=== PATIENT | female | born 1955 | race Native Hawaiian/Other Pacific Islander ===

== ENCOUNTER 2019-05-05 10:24 | Outpatient (CLI) | payer OTHER | END 2019-05-05 19:53 | disposition home or self-care (01) | LOC: RAD 10:24 | DX: R07.81 Pleurodynia (principal) ==

== ENCOUNTER 2019-08-06 10:25 | Emergency (ER) | payer OTHER, MEDICARE ==
[~2019-08-06] VITALS: Ht 170.2 cm; Wt 79.8 kg
[2019-08-06 10:37] VITALS: TEMP 98.7
[2019-08-06 11:04] LABS: PLATELET COUNT 155 K/uL (152-353)
[2019-08-06 11:13] LABS: POTASSIUM 3.3 mmol/L (3.6-5.2); SODIUM 138 mmol/L (136-145)
[2019-08-06 12:46] VITALS: BP 137/73
== END 2019-08-06 12:49 | disposition home or self-care (01) ==
LOC: ED 10:25
PROVIDERS: Emergency Medicine
DX: J20.9 Acute bronchitis, unspecified (principal)
CPT/HCPCS: 80053; 81000; 82550; 84484; 85027; 93005; 94664; 96365; 96366; 96374; 96375; 99284; J0696; J2930

== ENCOUNTER 2019-12-12 07:41 | Outpatient (CLI) | payer OTHER, MEDICARE ==
[2019-12-12 08:16] LABS: PLATELET COUNT 238 K/uL (152-353)
== END 2019-12-12 19:33 | disposition home or self-care (01) ==
LOC: LABW 07:41
PROVIDERS: Internal Medicine
DX: E78.49 Other hyperlipidemia (principal); I10 Essential (primary) hypertension; D64.89 Other specified anemias; F41.8 Other specified anxiety disorders; R82.998 Other abnormal findings in urine; D64.9 Anemia, unspecified
CPT/HCPCS: 36415; 80053; 80061; 81000; 82607; 83540; 84439; 84443; 85027; 87086; 87088

== ENCOUNTER 2020-02-10 11:52 | Outpatient (CLI) | payer OTHER, MEDICARE ==
[2020-02-10 12:37] LABS: PLATELET COUNT 237 K/uL (152-353)
[2020-02-10 13:08] LABS: POTASSIUM 4.1 mmol/L (3.6-5.2)
== END 2020-02-10 23:02 | disposition home or self-care (01) ==
LOC: LAB 11:52
PROVIDERS: Internal Medicine
DX: I10 Essential (primary) hypertension (principal); E78.49 Other hyperlipidemia; D64.9 Anemia, unspecified; E55.9 Vitamin D deficiency, unspecified; F41.8 Other specified anxiety disorders; R82.998 Other abnormal findings in urine
CPT/HCPCS: 80053; 80061; 81000; 82306; 82607; 83540; 84439; 84443; 85027; 87086; 87088

== ENCOUNTER 2020-05-16 13:13 | Outpatient (CLI) | payer OTHER, MEDICARE | END 2020-05-16 19:09 | disposition home or self-care (01) | LOC: LAB 13:13 | PROVIDERS: Internal Medicine | DX: E78.49 Other hyperlipidemia (principal); Z79.899 Other long term (current) drug therapy; D64.89 Other specified anemias; E53.8 Deficiency of other specified B group vitamins | CPT/HCPCS: 80061; 80076; 82607 ==

== ENCOUNTER 2021-03-11 10:19 | Outpatient (CLI) | payer OTHER, MEDICARE | END 2021-03-11 21:00 | disposition home or self-care (01) | LOC: MAMMO 10:19 | PROVIDERS: ATTEND Internal Medicine | DX: Z12.31 Encounter for screening mammogram for malignant neoplasm of breast (principal); Z13.820 Encounter for screening for osteoporosis; N95.8 Other specified menopausal and perimenopausal disorders ==

== ENCOUNTER 2022-03-24 10:07 | Outpatient (CLI) | payer OTHER, MEDICARE ==
[2022-03-24 10:23] LABS: PLATELET COUNT 243 K/uL (152-353)
== END 2022-03-24 18:58 | disposition home or self-care (01) ==
LOC: LABW 10:07
PROVIDERS: ATTEND Internal Medicine
DX: R09.1 Pleurisy (principal)
CPT/HCPCS: 36415; 85027; 85652